=== PATIENT | female | born 1995 | race Caucasian/White ===

== ENCOUNTER 2018-09-11 20:35 | Emergency (ER) | payer MEDICAID ==
[~2018-09-11] VITALS: Ht 162.6 cm; Wt 61.3 kg
[2018-09-11 20:38] VITALS: Ht 162.6 cm; Wt 61.3 kg
[2018-09-11] MEDS ORDERED: ACET325T33 PO (23:16)
--- NOTE | 2018-09-11 23:31 | ERD ---
ER Documentation Chief Complaint Chief Complaint PT REPORTS QUIROZ WORSENED OVER LAST 10 MINUTES HPI 23-year-old female presenting with headache and high blood pressure. Patient is 19 weeks . Patient is being seen at [facility]. G1, . Denies any vision changes. Denies vomiting. Denies any changes in urination or bowel movements. Denies any medical problems. NKDA. Surgical history denies. Social history denies ROS All systems reviewed and are negative except as per history of present illness. Medications Home Meds Active Scripts Acetaminophen* (Tylenol*) 325 Mg Tablet, 2 TAB PO Q6 PRN for PAIN AND OR ELEVATED TEMP, #20 TAB Prov:RASHEEDA WILEY PA-C 09/11/18 Allergies Allergies: Coded Allergies: No Known Allergy (Unverified , 09/11/18) PMhx/Soc Medical and Surgical Hx: pt denies Medical Hx, pt denies Surgical Hx History of Surgery: No Anesthesia Reaction: No Hx Neurological Disorder: No Hx Respiratory Disorders: No Hx Cardiac Disorders: No Hx Psychiatric Problems: No Hx Miscellaneous Medical Probl: No Hx Alcohol Use: No Hx Substance Use: No Hx Tobacco Use: No Smoking Status: Never smoker FmHx Family History: No diabetes, No coronary disease, No other Physical Exam Vitals Vital Signs Date Temp Pulse Resp B/P (MAP) Pulse Ox O2 O2 Flow FiO2 Time Delivery Rate 09/11/18 98.7 92 20 154/87 99 20:38 (109) Physical Exam GENERAL: The patient is well-appearing, well-nourished, in no acute distress HEENT: Atraumatic. Conjunctivae are pink. Pupils equal, round, and reactive to light. There is no scleral icterus. Tympanic membranes clear bilaterally. Oropharynx clear. No nystagmus or photophobia. CHEST: Clear to auscultation bilaterally. There are no rales, wheezes or rhonchi. HEART: Regular rate and rhythm. No murmurs, clicks, rubs or gallops. ABDOMEN:Soft, nontender and nondistended. Good bowel sounds. No rebound or guarding. No gross peritonitis. No gross organomegaly or masses. NEUROLOGIC: Alert and oriented. Cranial nerves II through XII intact. Motor strength in all 4 extremities with 5 out of 5 strength. Sensation grossly intact. Normal speech and gait. Babinski negative. DTR 2+ throughout. SKIN: There is no apparent rash or petechiae. The skin is warm and dry. Result Diagram: 09/11/18220909/11/182209 Results 24 hrs Laboratory Tests Test 09/11/18 22:10 White Blood Count 13.9 10^3/ul Red Blood Count 4.43 10^6/ul Hemoglobin 13.2 g/dl Hematocrit 38.9 % Mean Corpuscular Volume 87.8 fl Mean Corpuscular Hemoglobin 29.8 pg Mean Corpuscular Hemoglobin Concent 33.9 g/dl Red Cell Distribution Width 13.2 % Platelet Count 253 10^3/UL Mean Platelet Volume 9.5 fl Immature Granulocytes % 0.700 % Neutrophils % 78.0 % Lymphocytes % 13.2 % Monocytes % 7.2 % Eosinophils % 0.6 % Basophils % 0.3 % Nucleated Red Blood Cells % 0.0 /100WBC Immature Granulocytes # 0.100 10^3/ul Neutrophils # 10.8 10^3/ul Lymphocytes # 1.8 10^3/ul Monocytes # 1.0 10^3/ul Eosinophils # 0.1 10^3/ul Basophils # 0.0 10^3/ul Nucleated Red Blood Cells # 0.0 10^3/ul Prothrombin Time 11.7 Sec Prothrombin Time Ratio 0.9 INR International Normalized Ratio 0.85 Activated Partial Thromboplast Time 21.8 Sec Urine Color YELLOW Urine Clarity SLIGHTLY CLOUDY Urine pH 6.0 Urine Specific [place] 1.012 Urine Ketones NEGATIVE mg/dL Urine Nitrite NEGATIVE mg/dL Urine Bilirubin NEGATIVE mg/dL Urine Urobilinogen NEGATIVE mg/dL Urine Leukocyte Esterase NEGATIVE Jeannie/ul Urine Microscopic RBC 1 /HPF Urine Microscopic WBC 2 /HPF Urine Squamous Epithelial Cells FEW /HPF Urine Hemoglobin NEGATIVE mg/dL Urine Glucose NEGATIVE mg/dL Urine Total Protein NEGATIVE mg/dl Sodium Level 139 mmol/L Potassium Level 3.2 mmol/L Chloride Level 104 mmol/L Carbon Dioxide Level 24 mmol/L Anion Gap 11 Blood Urea Nitrogen 10 mg/dl Creatinine 0.39 mg/dl Est Glomerular Filtrat Rate mL/min > 60 mL/min Glucose Level 114 mg/dl Calcium Level 9.9 mg/dl Total Bilirubin 0.3 mg/dl Direct Bilirubin 0.00 mg/dl Indirect Bilirubin 0.3 mg/dl Aspartate Amino Transf (AST/SGOT) 15 IU/L Alanine Aminotransferase (ALT/SGPT) 15 IU/L Alkaline Phosphatase 75 IU/L Total Protein 7.7 g/dl Albumin 4.1 g/dl Globulin 3.60 g/dl Albumin/Globulin Ratio 1.13 Procedures/MDM MDM: 23-year-old female presenting with headache. Patient's blood work is within normal limits and I have low suspicion for preeclampsia findings at today's visit. Patient is recommended to follow-up with her IMM[employer]RATION OFFICER as she does have hypertension in and will likely need to be started on medications. I have low suspicion for intracranial hemorrhage or neuro deficit. Neuro exam is within normal limits. Patient is discharged with strict ER precautions. Patient is told to follow-up with OB. All questions answered at discharge Departure Diagnosis: Primary Impression: Hypertension affecting Additional Impression: Headache Condition: Stable Patient Instructions: Self-Care for Headaches, High Blood Pressure (Hypertension) Referrals: [facility] YOU HAVE RECEIVED A MEDICAL SCREENING EXAM AND THE RESULTS INDICATE THAT YOU DO NOT HAVE A CONDITION THAT REQUIRES URGENT TREATMENT IN THE EMERGENCY DEPARTMENT. FURTHER EVALUATION AND TREATMENT OF YOUR CONDITION CAN WAIT UNTIL YOU ARE SEEN IN YOUR DOCTORS OFFICE WITHIN THE NEXT 1-2 DAYS. IT IS YOUR RESPONSIBILITY TO MAKE AN APPOINTMENT FOR FOLOW-UP CARE. IF YOU HAVE A PRIMARY DOCTOR --you should call your primary doctor and schedule an appointment IF YOU DO NOT HAVE A PRIMARY DOCTOR YOU CAN CALL OUR PHYSICIAN REFERRAL HOTLINE AT IF YOU CAN NOT AFFORD TO SEE A PHYSICIAN YOU CAN CHOSE FROM THE FOLLOWING [facility] [address] [facility] [facility] [facility]. [facility] [address] [facility] [facility] [address] [facility] [facility] [address] [facility]. [facility] [address] [facility]. [facility]. [address] Additional Instructions: FOLLOW UP WITH YOUR PRIMARY CARE PHYSICIAN TOMORROW.Return to this facility if you are not improving as expected. RASHEEDA WILEY PA-C Sep 11, 2018 23:31
[2018-09-11 23:40] VITALS: BP 129/73; PULSE 61; RESP 18
== END 2018-09-11 23:45 | disposition home or self-care (01) ==
LOC: FTE 20:35
DX: O13.2 Gestational [pregnancy-induced] hypertension without significant proteinuria, second trimester (principal); R51 Headache; Z3A.19 19 weeks gestation of pregnancy
CPT/HCPCS: 36415; 80053; 81001; 85025; 85610; 85730; Z7502; 81003; 99283

== ENCOUNTER 2018-09-28 13:55 | Outpatient (CLI) | payer MEDICAID ==
[~2018-09-28] VITALS: Ht 154.9 cm; Wt 63.7 kg
[~2018-09-28 13:55] MED LIST: ACET325T33 PO
[2018-09-28 14:12] VITALS: Ht 154.9 cm; Wt 63.7 kg
[2018-09-28 14:13] VITALS: BP 124/69; PULSE 93; RESP 20
[2018-09-28] MEDS ORDERED: PREN-93 PO (14:16)
--- NOTE | 2018-09-28 16:53 | TRIAGE ---
OB Triage Datetime Report Generated by CPN: 09/28/2018 16:53 Datetime: 09/28/2018 16:47 Heart Rate Comments: Dr. Ghayoori at bedside to review strip u/s results and U/A results. New order to send pt home with antibiotic prescription Datetime: 09/28/2018 16:00 Labor Evaluation Frequency: X1 Monitor Mode: External Duration (sec)2399: 40 Quality: Mild Pattern: Normal: <= 5 Contractions in 10 Minutes Resting Tone [place]: Relaxed Pain Assessment Pain Scale: 0 Pain Presence: None/Denies Pain Type: N/A Pain Goal: 3 Datetime: 09/28/2018 15:17 Heart Rate Comments: Ultrasound at bedside Datetime: 09/28/2018 15:12 Labor Evaluation Frequency: 0 Monitor Mode: External Duration (sec)2399: 0 Resting Tone [place]: Relaxed Pain Assessment Pain Scale: 0 Pain Presence: None/Denies Pain Type: N/A Pain Goal: 3 Datetime: 09/28/2018 14:33 Labor Evaluation Frequency: 0 Monitor Mode: External Duration (sec)2399: 0 Resting Tone [place]: Relaxed Pain Assessment Pain Scale: 0 Pain Presence: None/Denies Pain Type: N/A Pain Goal: 3 Datetime: 09/28/2018 14:28 Stage of : OB Triage Temperature Route: Oral Datetime: 09/28/2018 14:10 Stage of : OB Triage Assessment Type: Triage Maternal Assessment Level of Consciousness: Keenly Alert, Responsive DTR's/Clonus: DTRs 2+; No Clonus Headache: Denies Blurred Vision: No Respiratory Effort: Unlabored; Regular Rhythm; Equal Expansion Breath Sounds, Left: Clear and Equal Breath Sounds, Right: Clear and Equal Nausea/Vomiting: Denies RUQ Epigastric Pain: Denies Lower Extremities Edema: None Upper Extremities Edema: None Facial Edema: None Temperature Route: Axillary Fall Risk Assessment History of Falling: (0) No Secondary Diagnosis: (0) No Ambulatory Aid: (0) Bedrest/Nurse Assist IV Therapy: (0) No Gait: (0) Normal/Bedrest/Immobile Mental Status: (0) Oriented to Own Ability Fall Score: 0 Fall Risk Score Definition: No Risk: No action required Pain Assessment Pain Scale: 0 Pain Presence: None/Denies Pain Type: N/A Pain Goal: 3 Datetime: 09/28/2018 14:04 Time of Arrival: 09/28/2018 13:45 EGA: 21.1 Arrived By: Ambulatory Arrived From: Home Chief Complaint: Urgency Movement: Present Contractions: Denies/Absent Rupture of Membranes: Denies Vaginal Bleeding: None Vaginal Discharge: Denies Recent Sexual Intercouse: Denies Abdominal Trauma: Not Applicable Patient Complaints: Urinary Frequency Additional Patient Complaints: UTI symptoms ( pt stated going to restroom every 10 mins) Time Provider Notified: 09/28/2018 14:27 Provider Notified: Guero Initial Plan: Heart tones (140's to 150's) Heart Rate Comments: Baby's [place] rate with doppler 140's to 150's Datetime: 09/28/2018 13:58 Stage of : OB Triage
--- NOTE | 2018-09-28 16:54 | PN ---
Triage Information Date/Time Reason for visit: frequency and Dysuria Weeks of Gestation 21+ /Para n/a Diabetes: none Hypertention: none Objective Vital Signs Date Temp Pulse Resp B/P (MAP) Pulse Ox O2 O2 Flow FiO2 Time Delivery Rate 09/28/18 98.3 93 20 124/69 Room Air 14:13 (87) Heart Rate: 140's Contractions: None Results/Medications Results 24 hrs Laboratory Tests Test 09/28/18 14:18 Urine Color YELLOW Urine Clarity SLIGHTLY CLOUDY A Urine pH 6.0 Urine Specific [place] 1.013 Urine Ketones NEGATIVE Urine Nitrite NEGATIVE Urine Bilirubin NEGATIVE Urine Urobilinogen NEGATIVE Urine Leukocyte Esterase 2+ H Urine Microscopic RBC 12 H Urine Microscopic WBC 108 H Urine Squamous Epithelial Cells FEW Urine Hemoglobin 1+ H Urine Glucose NEGATIVE Urine Total Protein NEGATIVE Disposition: Discharge Assessment/Plan Ultrasound reviewed Questions answered Follow up with provider DON Burrell M.D. Sep 28, 2018 16:54
== END 2018-09-28 17:11 | disposition home or self-care (01) ==
LOC: OBT 13:55 → L-D 13:56 → OBT 17:11
PROVIDERS: ATTEND Obstetrics & Gynecology
DX: O26.892 Other specified pregnancy related conditions, second trimester (principal); Z3A.21 21 weeks gestation of pregnancy; R35.0 Frequency of micturition; R30.0 Dysuria
CPT/HCPCS: 76815; 76817; 81001; Z7500; G0463

== ENCOUNTER 2018-11-16 11:11 | Emergency (ER) | payer MEDICAID ==
[~2018-11-16] VITALS: Ht 157.5 cm; Wt 69.6 kg
[~2018-11-16 11:11] MED LIST changes: +BEN25 PO; +FAMO-96 PO; +PREN-93 PO
[2018-11-16 11:21] VITALS: BP 116/81; PULSE 111; RESP 18; Ht 157.5 cm; Wt 69.6 kg
[2018-11-16] MEDS ORDERED: DIPHENHYDRAMINE 50 MG CAP PO STA (12:15)
[2018-11-16] MEDS ORDERED: FAMOTIDINE 20 MG TAB PO STA (12:15)
== END 2018-11-16 13:24 | disposition home or self-care (01) ==
LOC: FTE 11:11
DX: O99.713 Diseases of the skin and subcutaneous tissue complicating pregnancy, third trimester (principal); L29.9 Pruritus, unspecified; Z3A.28 28 weeks gestation of pregnancy
CPT/HCPCS: Z7502; Z7610; 99283